=== PATIENT | female | born 2000 | race Caucasian/White ===

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

== ENCOUNTER 2022-08-07 11:42 | Day surgery (SDC) | payer BC ==
[2022-08-06 10:59] VITALS: BMI 23.0
[~2022-08-07 11:42] MED LIST: LACTATED RINGERS 1,000 ML IV SCH
[2022-08-07 13:34] VITALS: TEMP 97.1
[2022-08-07] MEDS ORDERED: PROPOFOL 10 MG/ML 20 ML VIAL IV ONE (13:44)
[2022-08-07] MEDS ORDERED: LIDOCAINE 2% INJ 20 MG/ML (2 ML VIAL) ONE (13:44)
--- NOTE | 2022-08-07 13:59 | P.PCN ---
Date of Procedure: 08/07/22 Procedure(s) Performed: BRIEF HISTORY: Patient is a 22-year-old, pleasant, white female scheduled for an upper endoscopy as a part of evaluation of gastroesophageal reflux symptoms for the last 2 years duration. Presently on Protonix 40 mg daily and continues to remain symptomatic and hence scheduled for an upper endoscopy to evaluate further. PROCEDURE PERFORMED: Esophagogastroduodenoscopy with biopsy. PREOPERATIVE DIAGNOSIS: Gastroesophageal reflux symptoms. IV sedation per anesthesia. PROCEDURE: After informed consent was obtained, the patient was brought into the endoscopy unit. IV sedation was administered by Anesthesia under continuous monitoring. Initially the Olympus GIF-140 video endoscope was inserted into the mouth. Esophagus intubated without any difficulty. It was gradually advanced into the stomach and duodenum and carefully examined. The bulb and the second part of the duodenum appeared normal. The scope at this time was withdrawn to the stomach, adequately insufflated with air, and upon careful examination, mucosa of the antrum, had patchy areas of erythema and biopsies were done from this area. The body, cardia and the fundus appeared normal. The scope was then withdrawn into the esophagus. The GE junction was located at 37 cm from the incisors. Mall sliding type hiatal hernia noted The esophagus appeared normal. There were no erosions or ulcerations seen and the patient tolerated the procedure well. IMPRESSION: 1. Small sliding Hiatal hernia with no evidence of esophagitis or Solano's esophagus. 2. Mild antral gastritis. RECOMMENDATIONS: The findings of this examination were discussed with the patient well as her family. She was advised to continue with Protonix 40 mg twice daily and follow antireflux measures. She'll be seen in office in 4-6 weeks.
[2022-08-07 14:08] VITALS: BP 116/54; PULSE 107; RESP 16
== END 2022-08-07 14:42 | disposition home or self-care (01) ==
LOC: ORWHC2ENDO 11:42
PROVIDERS: ATTEND Internal Medicine Gastroenterology
DX: K29.50 Unspecified chronic gastritis without bleeding (principal); K44.9 Diaphragmatic hernia without obstruction or gangrene; K21.9 Gastro-esophageal reflux disease without esophagitis; K22.89 Other specified disease of esophagus
CPT/HCPCS: 81025; 88305; 43239; J2704; J2001

== ENCOUNTER → 2023-09-14 | Outpatient (CLI) | payer OTHER ==
--- NOTE | 2023-09-14 12:05 | CT ---
EXAMINATION TYPE: CT sinus wo con DATE OF EXAM: 09/14/2023 COMPARISON: None HISTORY: chronic sinusitis CT DLP: 596.5 mGycm. Automated Exposure Control for Dose Reduction was Utilized. TECHNIQUE: CT scan of the sinuses is performed without contrast, axial images are obtained, coronal r eformatted images are also reviewed. FINDINGS: The paranasal sinuses are well aerated. There are no air-fluid levels to suggest acute sinusitis. The re is a tiny mucous retention cyst or polyp in the right maxillary sinus. The ostiomeatal complexes are patent. The osseous larson of the paranasal sinuses are intact without thinning or sclerosis. The nasal cavity is within normal limits with no evidence of polyp or marked mucosal thickening. The intraorbital contents appear normal and symmetric. The mastoid air cells and middle ear cavities are well aerated. IMPRESSION: Tiny mucous retention cyst or polyp in the right maxillary sinus with no other significant abnormalit y seen.
== END | disposition home or self-care (01) ==
LOC: RADCTMAIN 08:56
PROVIDERS: ATTEND Otolaryngology
DX: J32.0 Chronic maxillary sinusitis (principal)
CPT/HCPCS: 70486